=== PATIENT | male | born 1935 | race Caucasian/White ===

== ENCOUNTER 2018-01-26 14:08 | Inpatient (IN) | payer MEDICARE ==
[~2018-01-26] VITALS: Ht 175.3 cm; Wt 64.5 kg
--- NOTE | ~2018-01-26 | PN ---
PATIENT:DEAN FU MEDICAL RECORD: [id number] LOCATION:ABHIJIT Golden112 ADMISSION DATE: 01/26/18 PROGRESS NOTE DATE OF SERVICE: 02/01/2018 SUBJECTIVE: No new complaint. OBJECTIVE: The patient has remained stable. Case management is working on options for the patient in terms of home health. On exam, mood is pleasant. Affect is rather constricted. Speech is somewhat terse. Content of thought focuses only on somatic concerns. Sensorium shows no change. ASSESSMENT: No change in diagnosis. PLAN: 1. Continue current medication. 2. Continue supportive therapy. TRANSINT:[id number] Voice Confirmation ID: [id number] DOCUMENT ID: [id number] FANG LANDA III, MD at 0825 CC: [id number] DICTATION DATE: 02/01/18 1144 ADMINISTRATION VICE PRESIDENT: 02/01/18 1420 ADM IN [place] [id number] [place] [id number]
--- NOTE | ~2018-01-26 | DS ---
PATIENT:DEAN FU :39 MEDICAL RECORD: [id number] DISCHARGE SUMMARY ADMISSION DATE: 01/26/18 DISCHARGE DATE: 02/02/18 DATE OF ADMISSION: 01/26/2018 DATE OF DISCHARGE: 02/02/2018 HISTORY OF PRESENT ILLNESS: Third recent psychiatric hospitalization for this 82-year-old white male. The patient had been transferred from [facility] Emergency Department. He had been quite agitated and had been aggressive toward his earlier. The patient does have a past history of mood disorder. He has been diagnosed with depression and anxiety in the past. For further details, please see previously dictated history. COURSE IN THE HOSPITAL: The patient was seen in consultation by Dr. Hong who noted the presence of hypertension, hyperlipidemia, and cardiac arrhythmias. The patient does have a pacemaker. The patient was treated with Depakote Sprinkles, dosage was stabilized at 500 mg twice a day. He achieved a therapeutic blood level of 71.6 on this dosage. The patient was also treated with Zyprexa 2.5 mg twice a day. The patient showed a very good resolution of his agitation. He showed no further violence or outbursts following hospitalization. He was maintained on previous doses of lisinopril, Coreg, Pravachol. By the time of discharge, the patient was felt to be stable enough to return to the home environment. However, case management will be asking for home health services to help with medication management for both the patient and his . FINAL DIAGNOSES: AXIS I: Alzheimer dementia with behavioral disturbance -- improving. AXIS II: No diagnosis. AXIS III: Hypertension, hyperlipidemia, cardiac arrhythmias status post pacemaker implantation. AXIS IV: Moderate. AXIS V: 40. PLAN: 1. The patient is discharged on current medication. 2. Diet and activities as tolerated. 3. Follow up with primary care provider. TRANSINT:[id number] Voice Confirmation ID: [id number] DOCUMENT ID: [id number] DISCHARGE SUMMARY REPORT [id number] DEAN FU III, FANG Ramachandran MD at 0736 CC: [id number] DICTATION DATE: 02/02/18 0953 SLOT AMBASSADOR: 02/02/18 1606 DIS IN 02/02/18 [place] [address] [place] [address]
--- NOTE | ~2018-01-26 | PN ---
PATIENT:DEAN FU MEDICAL RECORD: [id number] LOCATION:ABHIJIT Golden112 ADMISSION DATE: 01/26/18 PROGRESS NOTE DATE OF SERVICE: 01/28/2018 SUBJECTIVE: The patient's case was discussed with staff. He has no new complaint. OBJECTIVE: The patient is in good behavioral control with limited insight about his condition. He tolerates his medicines well. He is severely impaired cognitively, but has not been openly aggressive. ASSESSMENT: No change in diagnoses. PLAN: The patient's current medications and therapies will be maintained. I would anticipate he could be transitioned out of the hospital soon if this level of improvement is maintained. He has not been aggressive today. TRANSINT:[id number] Voice Confirmation ID: [id number] DOCUMENT ID: [id number] RADHA ASTORGA MD at 1130 CC: [id number] DICTATION DATE: 01/28/18 1448 ORACLE DATABASE ADMINISTRATOR: 01/28/18 1556 ADM IN [facility] [address] [place] [address]
--- NOTE | ~2018-01-26 | PN ---
PATIENT:DEAN FU MEDICAL RECORD: [id number] LOCATION:ABHIJIT Golden112 ADMISSION DATE: 01/26/18 PROGRESS NOTE DATE OF SERVICE: 01/31/2018 SUBJECTIVE: No new complaint noted. OBJECTIVE: The patient did undergo neuropsychological testing and scored 26 out of 30 on the [facility] Mental Status exam, which shows some minor difficulties in terms of attention and recall. Staff is going to investigate the possibility of having a home health visit the patient and his . On exam, mood is euthymic. Affect is somewhat constricted. Speech is rather terse. Content of thought is negative for overt psychosis. Sensorium shows no change. ASSESSMENT: No change in diagnoses. PLAN: 1. Continue current medications and discharge planning. 2. Continue supportive therapy. TRANSINT:[id number] Voice Confirmation ID: [id number] DOCUMENT ID: [id number] FANG LANDA III, MD at 0644 CC: [id number] DICTATION DATE: 01/31/18 1123 REGISTERED NURSE SURGICAL SERVICES: 01/31/18 1246 ADM IN [place] [address] [place] [id number]
--- NOTE | ~2018-01-26 | PN ---
PATIENT:DEAN FU MEDICAL RECORD: [id number] LOCATION:ABHIIJT Golden112 ADMISSION DATE: 01/26/18 PROGRESS NOTE DATE OF SERVICE: 01/30/2018 SUBJECTIVE: The patient's case was discussed with staff. He has no new complaint. OBJECTIVE: The patient is in good behavioral control with limited insight about his condition. He tolerates his medicines well. ASSESSMENT: No change in diagnoses. PLAN: Current medicines and therapies have been reviewed and will be maintained. Long-term prognosis is guarded. TRANSINT:[id number] Voice Confirmation ID: [id number] DOCUMENT ID: [id number] RADHA ASTORGA MD at 1409 CC: [id number] DICTATION DATE: 01/30/18 1027 LIBRARY MEDIA ASSISTANT: 01/30/18 1644 ADM IN [place] [address] [place] [address]
--- NOTE | ~2018-01-26 | PN ---
PATIENT:DEAN FU MEDICAL RECORD: [id number] LOCATION:ABHIJIT Golden112 ADMISSION DATE: 01/26/18 PROGRESS NOTE DATE OF SERVICE: 01/29/2018 SUBJECTIVE: The patient's case was discussed with staff. He has no new complaint. OBJECTIVE: The patient denies intent to harm himself or others. He is severely impaired cognitively. He has not been aggressive here today. He is eating reasonably well. ASSESSMENT: No change in diagnoses. PLAN: The patient will be maintained on current medicines, which have been reviewed. Long-term prognosis is guarded. TRANSINT:[id number] Voice Confirmation ID: [id number] DOCUMENT ID: [id number] RADHA ASTORGA MD at 1001 CC: [id number] DICTATION DATE: 01/29/18 1153 VULNERABILITY RESEARCHER: 01/29/18 1206 ADM IN [facility] [address] [place] [address]
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
[2018-01-26] MEDS ORDERED: LISINOPRIL2.5 MG PO (16:05)
[2018-01-26] MEDS ORDERED: PRAVACHOL40 MG PO (16:05)
[2018-01-26] MEDS ORDERED: COREG6.25 MG PO (16:06)
[2018-01-26] MEDS ORDERED: ULTRAM50 MG PO (16:06)
[2018-01-26] MEDS ORDERED: ATIVAN0.5 MG PO (16:06)
[2018-01-26] MEDS ORDERED: ZYPREXA2.5 MG PO (16:08)
[2018-01-26] MEDS ORDERED: DEPAKOTE125 MG PO (16:08)
[2018-01-26] MEDS ORDERED: FUROSEMIDE20 MG PO (16:09)
[2018-01-26 19:15] VITALS: BP 128/77; BMI 20.8
[2018-01-26 19:38] VITALS: BP 126/58; BP 129/89
[2018-01-26 19:43] VITALS: BP 129/89
[2018-01-27 07:19] LABS: BASOPHILS 0.4 % (0-2); HEMATOCRIT 43.6 % (42.0-54.0); HEMOGLOBIN 14.7 g/dL (13.5-17.5); IMMATURE GRANULOCYTES 0.1 % (0-5); LYMPHOCYTES 10.5 % (15-50); MCH 32.7 pg (26.0-34.0); MCHC 33.7 g/dL (31.0-37.0); MCV 96.9 fL (80.0-100.0); MEAN PLATELET VOLUME 12.4 fL (7.4-10.4); MONOCYTES 10.2 % (2-11); NEUTROPHILS 76.8 % (40-80); PLATELET COUNT 148 10x3/uL (130-400); RDW 14.2 % (11.5-14.5); WBC 7.1 10x3/uL (4.8-10.8)
[2018-01-27 07:43] LABS: ALKALINE PHOSPHATASE 63 U/L (46-116); ALT (SGPT) 18 U/L (10-68); BILIRUBIN - TOTAL 1.04 mg/dL (0.2-1.3); CALC OSMOLALITY 285 mosm/kg (275-300); CALCIUM 8.6 mg/dL (8.5-10.1); CARBON DIOXIDE 26.6 mmol/L (21.0-32.0); CHLORIDE - SERUM 107 mmol/L (98-107); CHOL - HDL RATIO 2.8 ratio (2.3-4.9); CHOLESTEROL, TOTAL 188 mg/dL (0-200); CREATININE - SERUM 0.9 mg/dL (0.6-1.3); GLUCOSE 92 mg/dL (74-106); HDL CHOLESTEROL 67 mg/dL (32-96); LDL CHOLESTEROL 112 mg/dL (0-100); LDL-HDL RATIO 1.7 ratio (1.5-3.5); POTASSIUM - SERUM 3.6 mmol/L (3.5-5.1); PROTEIN - SERUM 6.1 g/dL (6.4-8.2); SODIUM 143 mmol/L (136-145); THYROID STIMULATING HORMONE 1.13 uIU/mL (0.36-3.74); TRIGLYCERIDE 49 mg/dL (30-200); UREA NITROGEN 14 mg/dL (7-18); VALPROIC ACID (DEPAKOTE) 20.8 ug/mL (50.0-100.0); eGFR NON AFRICAN AMERICAN 86 mL/min (90-120)
[2018-01-27 10:48] VITALS: BMI 20.8
[2018-01-27 19:41] VITALS: BP 115/57
[2018-01-28 07:26] LABS: RAPID PLASMA REAGIN Non Reactive (Non Reactive)
[2018-01-28 08:19] LABS: FOLATE (FOLIC ACID) - SERUM >20.0 ng/mL (>3.0)
[2018-01-28 08:47] VITALS: BP 130/70
[2018-01-28 11:19] LABS: VITAMIN D 25 HYDROXY 36.3 ng/mL (30.0-100.0)
[2018-01-28 19:17] VITALS: BP 95/52
[2018-01-28 21:07] LABS: APPEARANCE CLEAR (CLEAR); BILIRUBIN NEGATIVE (NEGATIVE); COLOR YELLOW (YELLOW); GLUCOSE NEGATIVE (NEGATIVE); KETONE NEGATIVE (NEGATIVE); NITRITE NEGATIVE (NEGATIVE); PROTEIN NEGATIVE (NEGATIVE); SPECIFIC GRAVITY 1.015 (1.005-1.020); UROBILINOGEN NORMAL (NORMAL)
[2018-01-29 07:34] VITALS: BP 126/76
[2018-01-29 19:40] VITALS: BP 102/53
[2018-01-30 07:00] VITALS: BP 133/85
[2018-01-30 20:25] VITALS: BP 122/79
[2018-01-31 08:30] VITALS: BP 134/77
[2018-01-31 21:02] VITALS: BP 113/62
[2018-02-01 07:46] VITALS: BP 143/80
[2018-02-01 20:19] VITALS: BP 137/76
[2018-02-02 07:59] VITALS: BP 138/80
[2018-02-02] MEDS ORDERED: DEPAKOTE500 MG PO (09:23)
[2018-02-02 10:45] VITALS: Ht 175.3 cm; Wt 64.5 kg
== END 2018-02-02 14:10 | disposition home health service (06) | DRG 57 ==
LOC: D.PSYCH 14:08
PROVIDERS: Psychiatry & Neurology Psychiatry
DX: G30.9 Alzheimer's disease, unspecified (principal); F02.81 Dementia in other diseases classified elsewhere, unspecified severity, with behavioral disturbance; I10 Essential (primary) hypertension; E78.5 Hyperlipidemia, unspecified; Z95.0 Presence of cardiac pacemaker

== ENCOUNTER 2018-03-26 11:18 | Inpatient (IN) | payer MEDICARE ==
[~2018-03-26] VITALS: Ht 175.3 cm; Wt 63.7 kg
--- NOTE | ~2018-03-26 | PN ---
PATIENT:DEAN FU MEDICAL RECORD: [id number] LOCATION:ABHIJIT Golden113 ADMISSION DATE: 03/26/18 PROGRESS NOTE DATE OF SERVICE: 03/30/2018 SUBJECTIVE: The patient's case was discussed with staff. He has no new complaint. OBJECTIVE: The patient denies intent to harm himself or others. He has been in good behavioral control and has had no aggression or psychotic symptoms. ASSESSMENT: No change in diagnoses. PLAN: The patient's family has not been contacted. The keeps giving the wrong phone number for the son and daughter. The patient and his should not be living alone. If the family cannot be contacted soon, I plan to turn this over to adult protective services. The patient has had 4 hospitalizations recently, all in my view related to a lack of proper supervision on an outpatient basis. He organizes very well with the structure and assistance he gets in the hospital and his needs are simply not being met on an outpatient basis. I will not discharge him without appropriate supervision unless forced to do so. TRANSINT:[id number] Voice Confirmation ID: [id number] DOCUMENT ID: [id number] RADHA ASTORGA MD at 1326 CC: [id number] DICTATION DATE: 03/30/18 1425 ACCOUNTING MANAGER CONTROLLER: 03/30/18 1436 ADM IN [place] [id number] [place] [address]
--- NOTE | ~2018-03-26 | PN ---
PATIENT:DEAN FU MEDICAL RECORD: [id number] LOCATION:ABHIJIT Golden113 ADMISSION DATE: 03/26/18 PROGRESS NOTE DATE OF SERVICE: 04/05/2018 SUBJECTIVE: No new complaint. OBJECTIVE: The patient continues to be cooperative. We are awaiting resolution of placement issues with family. On exam, mood is euthymic and pleasant. Affect is reserved. Speech is somewhat terse. Content of thought negative for overt psychosis. Sensorium unchanged. ASSESSMENT: No change in diagnosis. PLAN: 1. Continue current medication. 2. Continue supportive therapy. TRANSINT:[id number] Voice Confirmation ID: [id number] DOCUMENT ID: [id number] FANG LANDA III, MD at 1019 CC: [id number] DICTATION DATE: 04/05/18 1151 STATION ENGINEER: 04/05/18 1216 ADM IN [place] [id number] [place] [address]
--- NOTE | ~2018-03-26 | PN ---
PATIENT:DEAN FU MEDICAL RECORD: [id number] LOCATION:ABHIJIT Miranda ADMISSION DATE: 03/26/18 PROGRESS NOTE DATE OF SERVICE: 04/01/2018 SUBJECTIVE: No new complaint. OBJECTIVE: The patient is very pleasant on approach. He asked us about going home. He presents placement challenge because his is also quite demented. On exam, mood is euthymic. Affect is bland. Speech is rather terse. Content of thought shows no overt psychosis. Sensorium shows no change. ASSESSMENT: No change in diagnosis. PLAN: 1. Continue current medication. 2. Continue supportive therapy. TRANSINT:[id number] Voice Confirmation ID: [id number] DOCUMENT ID: [id number] FANG LANDA III, MD at 0553 CC: [id number] DICTATION DATE: 04/01/18 142 CHRONIC SPECIALIST: 04/01/18 1515 ADM IN [place] [address] [place] [address]
--- NOTE | ~2018-03-26 | PN ---
PATIENT:DEAN FU MEDICAL RECORD: [id number] LOCATION:ABHIJIT Golden113 ADMISSION DATE: 03/26/18 PROGRESS NOTE DATE OF SERVICE: 03/28/2018 SUBJECTIVE: The patient's case was discussed with staff. He has no new complaint. OBJECTIVE: The patient is in good behavioral control, although he was agitated last night and required p.r.n. Ativan. ASSESSMENT: No change in diagnoses. PLAN: The patient has an advanced dementia. I am going to stop his Zyprexa and try him on Trilafon to see if we get a better result. Although he certainly requires pharmacologic interventions to aid with his behavior problems, it is my opinion that the pharmacology is not going to be the whole solution. Clearly, there are issues with this man's home situation. Apparently, his is advanced in age and clearly not intact cognitively and the two of them trying to care for each other and handle the ordinary day to day stresses of life is just simply not working. I plan to involve the daughter in this process to see if there is something that can be done to place him in a more supportive environment. TRANSINT:[id number] Voice Confirmation ID: [id number] DOCUMENT ID: [id number] RADHA ASTORGA MD at 1433 CC: [id number] DICTATION DATE: 03/28/18 1435 CHIP WASHER: 03/28/18 1453 ADM IN [facility] [address] [place] [address]
--- NOTE | ~2018-03-26 | PN ---
PATIENT:DEAN FU MEDICAL RECORD: [id number] LOCATION:ABHIJIT Miranda ADMISSION DATE: 03/26/18 PROGRESS NOTE DATE OF SERVICE: 04/04/2018 SUBJECTIVE: No new complaint noted. OBJECTIVE: The patient's son is obtaining guardianship. The patient is tolerating medications well. As soon as discharge planning can be completed, the patient may be discharged. On exam, mood is for the most part euthymic. Affect is pleasant and bland. Speech is rather terse. Content of thought is negative for overt psychosis. Sensorium unchanged. ASSESSMENT: No change in diagnosis. PLAN: 1. Maintain current medication. 2. Continue supportive therapy. TRANSINT:[id number] Voice Confirmation ID: [id number] DOCUMENT ID: [id number] FANG LANDA III, MD at 1133 CC: [id number] DICTATION DATE: 04/04/18 1246 STATISTICAL TYPIST: 04/04/18 1409 ADM IN [facility] [address] [place] [address]
--- NOTE | ~2018-03-26 | PN ---
PATIENT:DEAN FU MEDICAL RECORD: [id number] LOCATION:ABHIJIT Miranda ADMISSION DATE: 03/26/18 PROGRESS NOTE DATE OF SERVICE: 04/07/2018 SUBJECTIVE: No new complaint. OBJECTIVE: The patient is scheduled for discharge today to home. He has been referred to adult protective services. The patient did score 19/30 on the [facility] Mental Status exam. Short-term memory was extremely poor. On exam, mood is pleasant. Affect is reserved. Speech is somewhat terse. Content of thought is negative for overt psychosis. Sensorium is unchanged. ASSESSMENT: No change in diagnosis. PLAN: The patient is scheduled for discharge today. TRANSINT:[id number] Voice Confirmation ID: [id number] DOCUMENT ID: [id number] FANG LANDA III, MD at 1912 CC: [id number] DICTATION DATE: 04/07/18 1035 CHUCKING MACHINE OPERATOR: 04/07/18 1054 DIS IN 04/07/18 [facility] [address] [place] [address]
--- NOTE | ~2018-03-26 | DS ---
PATIENT:DEAN FU :39 MEDICAL RECORD: [id number] DISCHARGE SUMMARY ADMISSION DATE: 03/26/18 DISCHARGE DATE: 04/07/18 IDENTIFYING DATA: The patient is 83 years old and he was admitted to the hospital on a voluntary basis because of confusion and aggression. The patient's family brought him to the Emergency Room at [facility] and reported the agitation. He was evaluated there and sent home with the family, but subsequently returned the next day with the same complaint. That is when they referred him for inpatient care. The patient has a history of dementia and was only oriented to person. He was denying that he wanted to hurt himself or others. HOSPITAL COURSE: The patient was admitted to the hospital and fully evaluated from both a medical, psychological, and social standpoint. He was treated with both mood stabilizing and memory enhancing medications and did show improvement through the course of the hospitalization. He was subsequently transitioned out of the hospital. DISCHARGE DIAGNOSES: AXIS I: Senile dementia of the Alzheimer's type with behavioral disturbances. AXIS II: None. AXIS III: Hypertension, hyperlipidemia, cardiac arrhythmia. AXIS IV: Moderate stressors. AXIS V: Global assessment of functioning is 40. PLAN: At the time of discharge, the patient was in good behavioral control and had no active thoughts of harming himself or others. He was tolerating his medications well. Followup is to be with his primary care physician. TRANSINT:[id number] Voice Confirmation ID: [id number] DOCUMENT ID: [id number] RADHA ASTORGA MD at 1339 CC: [id number] DICTATION DATE: 04/26/18 1455 REFRIGERATOR GLAZIER: 04/26/18 1507 DIS IN 04/07/18 [place] [address] [place] [address]
--- NOTE | ~2018-03-26 | PSY ---
PATIENT NAME:DEAN FU MEDICAL RECORD: [id number] : 39 LOCATION:ABHIJIT Louise ADMISSION DATE: 03/26/18 ACCOUNT: [id number] PSYCHIATRIC EVALUATION DATE OF EVALUATION: 03/26/18 IDENTIFYING DATA: The patient is 82 years old and he is admitted to the hospital on a voluntary basis. CHIEF COMPLAINT: Confusion and aggression. HISTORY OF PRESENT ILLNESS: The patient's family brought him to the Emergency Room at [facility] yesterday and reported that he was agitated. He was evaluated there and sent home and subsequently returned today with the same complaint. It was at that point that they made this referral. The patient says he does not know why he is here. He does have a history of dementia, although he is oriented. He denies that he would seek to harm himself or others. PAST MEDICAL HISTORY: Significant for a cardiac arrhythmia, hypertension, and hyperlipidemia. PAST PSYCHIATRIC HISTORY: Significant for an established diagnosis of dementia, specifically Alzheimer disease and the patient has a long history of multiple psychiatric hospitalizations. This is his fourth psychiatric hospitalization since being diagnosed with dementia and the previous one was in January of this year. FAMILY PSYCHIATRIC HISTORY: Unknown. SOCIAL HISTORY: The patient is and has adult children. He is a retired chemical engineering intern. He has no history of drug or tobacco abuse, but he is a former drinker, although he denies that he ever drank excessively. MENTAL STATUS EXAMINATION: The patient is awake, alert, and oriented to person, place, and somewhat to time and situation. His mood is flat. His affect is constricted. Thought processes are circumstantial. Memory, concentration, and abstraction abilities are moderately impaired and he denies that he would seek to harm himself or others as well as overt psychotic symptoms. ASSETS: Supportive family members. LIABILITIES: Limited insight. DIAGNOSTIC IMPRESSION: AXIS I: Senile dementia of the Alzheimer's type with behavioral disturbances. AXIS II: None. AXIS III: Hypertension, hyperlipidemia, cardiac arrhythmia. AXIS IV: Moderate stressors. AXIS V: Global assessment of functioning is 35. PLAN: At this time, the patient is admitted to the hospital for a comprehensive medical, psychological, and social evaluation. He will be treated with both mood stabilizing and memory enhancing medications. His long-term prognosis is guarded. TRANSINT:[id number] Voice Confirmation ID: [id number] DOCUMENT ID: [id number] RADHA ASTORGA MD at 1433 CC: [id number] DICTATION DATE: 03/26/181911 ALMOND SORTER: 03/26/181927 ADM IN [facility] [address] [place] [address]
--- NOTE | ~2018-03-26 | PN ---
PATIENT:DEAN FU MEDICAL RECORD: [id number] LOCATION:ABHIJIT Golden113 ADMISSION DATE: 03/26/18 PROGRESS NOTE DATE OF SERVICE: 04/06/2018 SUBJECTIVE: No new complaint. OBJECTIVE: Staff report that adult protective services does have an open case on this individual. This may obviate the need for the son obtaining guardianship. On exam, mood is pleasant and euthymic. Affect is reserved. Speech fairly terse. Content of thought is negative for overt psychosis. Sensorium unchanged. ASSESSMENT: No change in diagnosis. PLAN: 1. Continue current medication. 2. Continue supportive therapy. TRANSINT:[id number] Voice Confirmation ID: [id number] DOCUMENT ID: [id number] FANG LANDA III, MD at 1829 CC: [id number] DICTATION DATE: 04/06/188 BARGE WORKER: 04/06/18 1136 ADM IN [facility] [address] [place] [address]
--- NOTE | ~2018-03-26 | PN ---
PATIENT:DEAN FU MEDICAL RECORD: [id number] LOCATION:ABHIJIT Golden113 ADMISSION DATE: 03/26/18 PROGRESS NOTE DATE OF SERVICE: 03/31/2018 SUBJECTIVE: The patient's case was discussed with staff. He has no new complaint. OBJECTIVE: The patient is in good behavioral control with limited insight about his condition. He generally tolerates his medicines well. ASSESSMENT: No change in diagnoses. PLAN: Supportive and educational interventions were made. Residential prognosis is guarded. The patient will have his Namenda increased slightly. TRANSINT:[id number] Voice Confirmation ID: [id number] DOCUMENT ID: [id number] RADHA ASTORGA MD at 1434 CC: [id number] DICTATION DATE: 03/31/18 1357 AIR CONDITIONING MECHANIC: 03/31/18 1531 DIS IN 04/07/18 [place] [address] [place] [address]
--- NOTE | ~2018-03-26 | PN ---
PATIENT:DEAN FU MEDICAL RECORD: [id number] LOCATION:ABHIJIT Miranda ADMISSION DATE: 03/26/18 PROGRESS NOTE DATE OF SERVICE: 03/29/2018 SUBJECTIVE: The patient's case was discussed with staff. He has no new complaint. OBJECTIVE: The patient denies intent to harm himself or others. He generally tolerates his medicines well. Eye contact is fair. ASSESSMENT: No change in diagnoses. PLAN: Supportive and educational interventions were made. Long-term prognosis is guarded. The patient will be started on a low dose of Namenda to assist with his cognitive impairment. TRANSINT:[id number] Voice Confirmation ID: [id number] DOCUMENT ID: [id number] RADHA ASTORGA MD at 1348 CC: [id number] DICTATION DATE: 03/29/18 1505 CARPENTER AND JOINER: 03/29/18 1613 ADM IN [facility] [address] [place] [address]
[~2018-03-26 11:18] MED LIST: ATIVAN0.5 MG PO; COREG6.25 MG PO; DEPAKOTE125 MG PO; DEPAKOTE500 MG PO; FUROSEMIDE20 MG PO; LISINOPRIL2.5 MG PO; PRAVACHOL40 MG PO; ULTRAM50 MG PO; ZYPREXA2.5 MG PO
[2018-03-26 13:56] LABS: BASOPHILS 1.4 % (0-2); EOSINOPHILS 2.7 % (0-7); HEMATOCRIT 43.2 % (42.0-54.0); HEMOGLOBIN 14.5 g/dL (13.5-17.5); MCH 32.7 pg (26.0-34.0); MCHC 33.6 g/dL (31.0-37.0); MCV 97.5 fL (80.0-100.0); MEAN PLATELET VOLUME 12.8 fL (7.4-10.4); MONOCYTES 10.1 % (2-11); NEUTROPHILS 67.8 % (40-80); PLATELET COUNT 129 10x3/uL (130-400); RBC 4.43 10x6/uL (4.20-6.10); RDW 14.6 % (11.5-14.5); WBC 5.6 10x3/uL (4.8-10.8)
[2018-03-26 14:17] LABS: ALBUMIN 2.9 g/dL (3.4-5.0); ANION GAP 7.9 mmol/L (8-16); BILIRUBIN - TOTAL 0.6 mg/dL (0.2-1.3); CALCIUM 8.7 mg/dL (8.5-10.1); CHOL - HDL RATIO 3.1 ratio (2.3-4.9); CREATININE - SERUM 1.1 mg/dL (0.6-1.3); LDL-HDL RATIO 1.9 ratio (1.5-3.5); POTASSIUM - SERUM 3.9 mmol/L (3.5-5.1); THYROID STIMULATING HORMONE 1.92 uIU/mL (0.36-3.74)
[2018-03-26] MEDS ORDERED: FUROSEMIDE20 MG PO (14:22)
[2018-03-26] MEDS ORDERED: ATIVAN0.5 MG PO (14:26)
[2018-03-26 14:40] VITALS: BP 123/80; BMI 20.7
[2018-03-26 19:50] VITALS: BP 152/73
[2018-03-27 07:00] VITALS: BP 119/85
[2018-03-27 20:16] VITALS: BP 85/44
[2018-03-27 21:58] VITALS: BP 85/44
[2018-03-28 07:23] VITALS: BP 117/75
[2018-03-28 12:21] VITALS: BMI 20.7
[2018-03-28 14:59] VITALS: Ht 175.3 cm; Wt 63.7 kg
[2018-03-28 19:43] VITALS: BP 88/56
[2018-03-29 07:34] LABS: FOLATE (FOLIC ACID) - SERUM 11.5 ng/mL (>3.0)
[2018-03-29 09:33] VITALS: BP 129/81
[2018-03-29 20:42] VITALS: BP 93/56
[2018-03-30 08:55] LABS: APPEARANCE CLEAR (CLEAR); BILIRUBIN NEGATIVE (NEGATIVE); COLOR DK YELLOW (YELLOW); GLUCOSE NEGATIVE (NEGATIVE); KETONE NEGATIVE (NEGATIVE); NITRITE NEGATIVE (NEGATIVE); PROTEIN NEGATIVE (NEGATIVE); UROBILINOGEN NORMAL (NORMAL)
[2018-03-30 11:57] VITALS: BP 121/71
[2018-03-30 19:45] VITALS: BP 117/69
[2018-03-31 07:30] VITALS: BP 125/82
[2018-03-31 19:24] VITALS: BP 83/44
[2018-04-01 08:12] VITALS: BP 119/79
[2018-04-01 19:41] VITALS: BP 88/40
[2018-04-02 08:03] VITALS: BP 114/68
[2018-04-02 19:09] VITALS: BP 92/62
[2018-04-03 08:24] VITALS: BP 129/72
[2018-04-03 19:09] VITALS: BP 103/55
[2018-04-04 10:28] VITALS: BP 114/77
[2018-04-04 20:21] VITALS: BP 100/49
[2018-04-05 10:15] VITALS: BP 121/75
[2018-04-05 19:38] VITALS: BP 99/52
[2018-04-06 08:31] VITALS: BP 138/76
[2018-04-06 19:32] VITALS: BP 109/53
[2018-04-07 08:10] VITALS: BP 150/75
[2018-04-07] MEDS ORDERED: NAMENDA5 MG PO (10:18)
[2018-04-07] MEDS ORDERED: KLONOPIN0.5 MG PO (10:19)
[2018-04-07] MEDS ORDERED: SENNA8.6 MG PO (10:19)
[2018-04-07] MEDS ORDERED: PERPHENAZINE2 MG PO (10:19)
== END 2018-04-07 14:40 | disposition home or self-care (01) | DRG 57 ==
LOC: D.PSYCH 11:18
PROVIDERS: Psychiatry & Neurology Psychiatry
DX: G30.1 Alzheimer's disease with late onset (principal); F02.81 Dementia in other diseases classified elsewhere, unspecified severity, with behavioral disturbance; I10 Essential (primary) hypertension; E78.5 Hyperlipidemia, unspecified; Z95.0 Presence of cardiac pacemaker; F41.9 Anxiety disorder, unspecified; F39 Unspecified mood [affective] disorder; B35.1 Tinea unguium; K59.00 Constipation, unspecified